=== PATIENT | female | born 1960 | race Caucasian/White ===

== ENCOUNTER 2024-07-09 21:00 | Inpatient (IN) | payer OTHER, MEDICAID ==
[~2024-07-09] VITALS: Ht 162.6 cm; Wt 69.1 kg
[~2024-07-09 21:00] MED LIST: APIX2.5T MT; ATOR10TA PO; CALC-26 PO; CHOL100022 PO; LISI2.5T47 PO; METF-874 PO
[2024-07-09] MEDS: SODIUM CHLORIDE 0.9% 1000ML BAG (SEPSIS BOLUS) IV ONE (21:39)
[2024-07-09] MEDS: CEFTRIAXONE 2GM/50ML 50 ML IV ONE (21:56)
[2024-07-09 22:03] LABS: HEMATOCRIT. 36.4 % (36.0-48.0); HEMOGLOBIN. 11.5 g/dL (12.0-16.0); MEAN CORPUSCULAR HEMOGLOBIN 26.6 pg (28.0-32.0); MEAN CORPUSCULAR HGB CONC 31.6 g/dL (31.0-37.0); MEAN CORPUSCULAR VOLUME 84.2 fL (81.0-99.0); PLATELET 275 x1000/uL (130-400); RED BLOOD CELL COUNT 4.33 mill/uL (4.2-5.4); RED CELL DISTRIBUTION WIDTH 15.3 % (11.6-14.6); WHITE BLOOD COUNT 17.7 x1000/uL (4.5-11.0)
[2024-07-09 22:06] LABS: DIFFERENTIAL COMMENT 1
[2024-07-09 22:18] LABS: CHLORIDE 101 mEq/L (98-107); POTASSIUM 3.9 mEq/L (3.5-5.1); SODIUM 134 mEq/L (136-145)
[2024-07-09 22:19] LABS: CALCIUM 9.5 mg/dL (8.7-10.4); CARBON DIOXIDE 25 mEq/L (21-32)
[2024-07-09 22:24] LABS: CREATININE 0.8 mg/dL (0.6-1.0); GLUCOSE 160 mg/dL (70-105); UREA NITROGEN BLOOD 18 mg/dL (9-23)
[2024-07-09 22:26] LABS: ALANINE AMINOTRANSFERASE 13 IU/L (10-49); ALBUMIN 4.4 g/dL (3.2-4.8); ASPARTATE AMINOTRANSFERASE 18 IU/L (<34); BILIRUBIN DIRECT 0.2 mg/dL (<=3.0); BILIRUBIN TOTAL 0.6 mg/dL (0.1-1.0); PROTEIN TOTAL 7.2 g/dL (6.0-8.3); TROPONIN I HIGH SENSITIVITY 5 ng/L (3.0-34)
[2024-07-09 23:08] LABS: ANISOCYTOSIS 1+; PLATELET ESTIMATE NORMAL
[2024-07-10] MEDS ORDERED: GUAIFENESIN 200MG/10ML SUGAR FREE UDC PO PRN (07:30)
[2024-07-10] MEDS ORDERED: ACETAMINOPHEN 325MG TABLET PO PRN (07:30)
[2024-07-10] MEDS ORDERED: IPRATROPIUM/ALBUTEROL 0.5-3(2.5)MG/3ML NEB NEB PRN (07:30)
[2024-07-10] MEDS ORDERED: ONDANSETRON HCL 4MG/2ML INJ IV PRN (07:30)
[2024-07-10] MEDS ORDERED: ENOXAPARIN 40MG/0.4ML SYR SUBCUT SCH (07:30)
[2024-07-10] MEDS ORDERED: MAGNESIUM/ALUMINUM HYDROXIDE/SIMETHICONE 30ML UDC PO PRN (07:30)
[2024-07-10] MEDS ORDERED: NITROGLYCERIN 0.4MG TABLET SL SL PRN (07:30)
[2024-07-10 09:00] VITALS: BP 146/61; PULSE 83; RESP 18; TEMP 36.55848; TEMP 36.6404; O2SAT 99
[2024-07-10 09:12] LABS: CARBON DIOXIDE 25 mEq/L (21-32); CHLORIDE 105 mEq/L (98-107); POTASSIUM 3.8 mEq/L (3.5-5.1); SODIUM 140 mEq/L (136-145)
[2024-07-10 09:13] LABS: CALCIUM 8.8 mg/dL (8.7-10.4)
[2024-07-10 09:18] LABS: CREATININE 0.7 mg/dL (0.6-1.0); GLUCOSE 70 mg/dL (70-105); UREA NITROGEN BLOOD 16 mg/dL (9-23)
[2024-07-10 09:19] LABS: IRON 19 ug/dL (50-170)
[2024-07-10 09:20] LABS: PHOSPHORUS 3.5 mg/dL (2.5-4.9); TRIGLYCERIDE 48 mg/dL (0-150)
[2024-07-10 09:21] LABS: CHOLESTEROL 100 mg/dL (<200); LDL CHOLESTEROL 43 mg/dL (5-100)
[2024-07-10 09:22] LABS: FOLIC ACID (FOLATE) SERUM > 20.00 ng/mL (>5.38); HDL CHOLESTEROL 42 mg/dL (>65); TOTAL IRON BINDING CAPACITY 374 ug/dl (250-425)
[2024-07-10 09:23] LABS: VITAMIN B12 SERUM 398 pg/mL (211-911)
[2024-07-10] MEDS: FAMOTIDINE 20MG TABLET PO SCH (09:53)
[2024-07-10] MEDS: ZINC SULFATE 220 MG ( 50 ) CAPSULE PO SCH (09:53)
[2024-07-10] MEDS: ACETAMINOPHEN 325MG TABLET PO PRN (09:54)
[2024-07-10] MEDS: ASCORBIC ACID 500 MG TABLET PO SCH (09:54)
[2024-07-10] MEDS: ASPIRIN 81MG EC TABLET PO SCH (10:48)
[2024-07-10 12:00] VITALS: BP 121/67; PULSE 79; RESP 18; TEMP 36.6696; O2SAT 98
[2024-07-10] MEDS ORDERED: DEXTROSE 50% WATER 50ML SYRINGE IV PRN (13:15)
[2024-07-10] MEDS: CEFTRIAXONE 1GM/50ML 50 ML IV SCH (13:31)
[2024-07-10] MEDS: APIXABAN 5 MG TABLET PO SCH (13:31)
[2024-07-10] MEDS: AZITHROMYCIN 500 MG in DEXT 5% WATER 250 ML IV SCH (14:26)
[2024-07-10 15:23] LABS: CREATINE KINASE MB FRACTION < 0.5 ng/mL (0.5-3.6); TROPONIN I HIGH SENSITIVITY 4 ng/L (3.0-34)
[2024-07-10 15:24] LABS: CREATINE KINASE 87 IU/L (34-145)
[2024-07-10 16:00] VITALS: BP 112/68; PULSE 72; RESP 18; TEMP 36.55848; O2SAT 96
[2024-07-10] MEDS: BLOOD SUGAR DIAGNOSTIC STRIP TEST SCH (16:40)
[2024-07-10] MEDS: INSULIN LISPRO 100 UNITS/ML SUBCUT SCH (18:06)
[2024-07-10] MEDS: INSULIN GLARGINE 100 UNITS/ML SUBCUT SCH (21:52)
[2024-07-10 22:08] LABS: CREATINE KINASE MB FRACTION < 0.5 ng/mL (0.5-3.6)
[2024-07-10 22:09] LABS: CREATINE KINASE 81 IU/L (34-145); TROPONIN I HIGH SENSITIVITY 5 ng/L (3.0-34)
[2024-07-11 07:42] LABS: BASOPHILS % 0.3 % (0.0-2.0); EOSINOPHILS % 0.1 % (0.0-5.0); HEMATOCRIT. 32.1 % (36.0-48.0); HEMOGLOBIN. 10.4 g/dL (12.0-16.0); MEAN CORPUSCULAR HEMOGLOBIN 26.9 pg (28.0-32.0); MEAN CORPUSCULAR HGB CONC 32.4 g/dL (31.0-37.0); MEAN PLATELET VOLUME 9.5 fl (7.4-10.4); MONOCYTES % 4.7 % (2.0-8.0); NEUTROPHILS % 83.9 % (40.0-76.0); PLATELET 251 x1000/uL (130-400); RED BLOOD CELL COUNT 3.86 mill/uL (4.2-5.4); RED CELL DISTRIBUTION WIDTH 15.1 % (11.6-14.6); WHITE BLOOD COUNT 14.2 x1000/uL (4.5-11.0)
[2024-07-11 07:50] LABS: CHLORIDE 104 mEq/L (98-107); POTASSIUM 3.9 mEq/L (3.5-5.1); SODIUM 136 mEq/L (136-145)
[2024-07-11 07:54] LABS: CALCIUM 8.9 mg/dL (8.7-10.4); CARBON DIOXIDE 24 mEq/L (21-32)
[2024-07-11 07:59] LABS: ALANINE AMINOTRANSFERASE 11 IU/L (10-49); CREATININE 0.7 mg/dL (0.6-1.0); GLUCOSE 110 mg/dL (70-105)
[2024-07-11 08:00] VITALS: BP 128/62; PULSE 88; RESP 17; TEMP 36.61404; O2SAT 96
[2024-07-11 08:00] LABS: UREA NITROGEN BLOOD 13 mg/dL (9-23)
[2024-07-11 08:01] LABS: ALBUMIN 3.8 g/dL (3.2-4.8); ASPARTATE AMINOTRANSFERASE 16 IU/L (<34)
[2024-07-11 08:02] LABS: BILIRUBIN TOTAL 0.6 mg/dL (0.1-1.0); PROTEIN TOTAL 6.5 g/dL (6.0-8.3)
[2024-07-11 12:00] VITALS: BP 116/59; PULSE 82; RESP 19; TEMP 36.61404; O2SAT 99
[2024-07-11] MEDS ORDERED: LIDOCAINE HCL/EPINEPHRINE 1%-EPI 1:100,000 20 ML VIAL INFIL NR (12:00)
[2024-07-11 13:55] LABS: CLARITY URINE CLOUDY (CLEAR); COLOR URINE YELLOW (YELLOW); GLUCOSE URINE 3+ (NEGATIVE); KETONES URINE 3+ (NEGATIVE); LEUKOCYTE ESTERASE URINE TRACE (NEGATIVE); NITRITE URINE NEGATIVE (NEGATIVE); OCCULT BLOOD URINE 1+ (NEGATIVE); PH URINE 5.5 (4.5-8.0); PROTEIN URINE TRACE (NEGATIVE); SPECIFIC GRAVITY URINE 1.037 (1.005-1.030)
[2024-07-11 14:10] LABS: BACTERIA URINE 1+; RBC URINE 0-2 /hpf (0-2); SQUAMOUS EPITHELIAL CELL URINE 2+ /lpf (RARE/1+); YEAST URINE NONE SEEN
[2024-07-11 14:18] LABS: *AMPHETAMINES SCREEN URINE NEGATIVE (NEGATIVE); *BARBITURATES SCREEN URINE NEGATIVE (NEGATIVE); *BENZODIAZEPINES SCREEN URINE NEGATIVE (NEGATIVE)
[2024-07-11 14:19] LABS: *COCAINE SCREEN URINE NEGATIVE (NEGATIVE); CANNABINOID URINE SCREEN NEGATIVE (NEGATIVE); ECSTASY MDMA SCREEN URINE NEGATIVE (NEGATIVE); METHADONE URINE SCREEN NEGATIVE (NEGATIVE); OPIATES URINE SCREEN NEGATIVE (NEGATIVE); PHENCYCLIDINE URINE SCREEN NEGATIVE (NEGATIVE)
[2024-07-11 16:00] VITALS: BP 138/69; PULSE 91; RESP 18; TEMP 36.50292; O2SAT 97
[2024-07-11] MEDS: KETOROLAC 15MG/ML VIAL IV PRN (16:55)
[2024-07-11 20:00] VITALS: BP 97/54; PULSE 80; RESP 18; TEMP 36.3918; O2SAT 99
[2024-07-12] VITALS: BP 119/61; PULSE 92; RESP 20; TEMP 36.72516; O2SAT 98
[2024-07-12 04:00] VITALS: BP 121/60; PULSE 86; RESP 18; TEMP 37.503; O2SAT 100
[2024-07-12 08:00] VITALS: BP 129/54; PULSE 80; RESP 20; TEMP 37.11408; O2SAT 100
[2024-07-12] MEDS ORDERED: LIDOCAINE HCL/EPINEPHRINE 1%-EPI 1:100,000 20 ML VIAL INFIL NR (10:00)
[2024-07-12] MEDS ORDERED: SILVER NITRATE APPLICATOR STICK TOP NR (10:00)
[2024-07-12 12:00] VITALS: BP 110/56; PULSE 82; RESP 20; TEMP 36.61404; O2SAT 100
[2024-07-12 16:00] VITALS: BP 113/50; PULSE 78; RESP 20; TEMP 36.3918; O2SAT 100
[2024-07-12] MEDS: DOCUSATE SODIUM 100MG CAPSULE PO PRN (18:44)
[2024-07-12 20:00] VITALS: BP 151/52; PULSE 75; RESP 19; TEMP 36.6696; O2SAT 98
[2024-07-13] VITALS: BP 140/74; PULSE 92; RESP 20; TEMP 36.55848; O2SAT 98
[2024-07-13 04:00] VITALS: BP 142/70; PULSE 77; RESP 19; TEMP 36.50292; O2SAT 100
[2024-07-13 08:00] VITALS: BP 160/74; PULSE 76; RESP 19; TEMP 36.33624; O2SAT 97
[2024-07-13] MEDS: CLONIDINE 0.1MG TABLET PO PRN (08:58)
[2024-07-13 12:00] VITALS: BP 120/62; PULSE 70; RESP 20; TEMP 36.44736; O2SAT 96
[2024-07-13 16:00] VITALS: BP 115/51; PULSE 68; RESP 20; TEMP 36.50292; O2SAT 96
[2024-07-13] MEDS ORDERED: NALOXONE HCL 0.4MG/ML VIAL IV PRN (16:45)
[2024-07-13 20:00] VITALS: BP 165/73; PULSE 78; RESP 20; TEMP 36.61404; O2SAT 100
[2024-07-13] MEDS: HYDROCODONE/ACETAMINOPHEN 7.5/325MG TABLET PO PRN (21:09)
[2024-07-14] VITALS: BP 107/48; PULSE 64; RESP 20; TEMP 36.6696; O2SAT 98
[2024-07-14] MEDS: ZOLPIDEM TARTRATE 5MG TABLET PO PRN (03:12)
[2024-07-14 04:00] VITALS: BP 118/52; PULSE 61; RESP 19; TEMP 36.61404; O2SAT 97
[2024-07-14 08:00] VITALS: BP 145/59; PULSE 63; RESP 18; TEMP 36.33624; O2SAT 97
[2024-07-14 12:00] VITALS: BP 163/66; PULSE 68; RESP 16; TEMP 36.33624; O2SAT 100
[2024-07-14 16:00] VITALS: BP 143/75; PULSE 69; RESP 16; TEMP 36.61404; O2SAT 99
[2024-07-14 20:00] VITALS: BP 141/51; PULSE 71; RESP 18; TEMP 36.72516; O2SAT 100
[2024-07-15] VITALS: BP 126/53; PULSE 70; RESP 18; TEMP 36.72516; O2SAT 100
[2024-07-15 04:00] VITALS: BP 148/54; PULSE 66; RESP 18; TEMP 36.61404; O2SAT 97
[2024-07-15 08:00] VITALS: BP 160/65; PULSE 78; RESP 20; TEMP 36.50292; O2SAT 98
[2024-07-15 12:00] VITALS: BP 135/52; PULSE 65; RESP 18; TEMP 36.114; TEMP 36.11400; O2SAT 99
[2024-07-15 15:26] VITALS: BP 135/52; PULSE 65; TEMP 97; O2SAT 99
== END 2024-07-15 17:30 | disposition home health service (06) | DRG 853 ==
LOC: ER 21:00 → 5WST 23:57 → EDBEDREQTM 07-10 00:34 → EDBEDREQ 07-10 00:34 → 7EST 07-10 09:00
PROVIDERS: ADMIT Internal Medicine; ATTEND Internal Medicine
PROC: 0JB90ZZ Excision of Buttock Subcutaneous Tissue and Fascia, Open Approach (ICD-10-PCS; principal; 2024-07-11)
PROC: 0KBF0ZZ Excision of Right Trunk Muscle, Open Approach (ICD-10-PCS; 2024-07-12)
DX: A41.9 Sepsis, unspecified organism (principal); J18.9 Pneumonia, unspecified organism; L03.317 Cellulitis of buttock; I96 Gangrene, not elsewhere classified; S82.842A Displaced bimalleolar fracture of left lower leg, initial encounter for closed fracture; E11.65 Type 2 diabetes mellitus with hyperglycemia; E78.00 Pure hypercholesterolemia, unspecified; I10 Essential (primary) hypertension; X58.XXXA Exposure to other specified factors, initial encounter; D63.8 Anemia in other chronic diseases classified elsewhere; Z79.01 Long term (current) use of anticoagulants; I69.30 Unspecified sequelae of cerebral infarction; Y93.89 Activity, other specified; Y92.89 Other specified places as the place of occurrence of the external cause; Y99.8 Other external cause status; Z79.4 Long term (current) use of insulin
CPT/HCPCS: 36415; 70551; 71045; 72192; 73590; 73600; 73700; 80048; 80053; 80061; 80076; 80305; 81003; 82550; 82553; 82607; 82746; 82962; 83036; 83540; 83550; 83605; 83735; 83880; 84100; 84145; 84439; 84443; 84484; 85025; 87070; 93005; 93306; 93970; 97162; 99285; J0456; J0696; J1815; J1885; J3490; J7030; J7060; L1830